=== PATIENT | female | born 1995 | race Caucasian/White ===

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

== ENCOUNTER 2018-01-02 02:09 | Emergency (ER) | payer BC ==
[2018-01-02 02:57] LABS: ABS Basophils 0 10^3/ul (0-0.2); ABS Eosinophils 0.2 10^3/ul (0-0.6); ABS Monocytes 0.4 10^3/ul (0-0.8); ABS Neutrophils 3.3 10^3/ul (1.5-7.7); ABS Nucleated RBC 0 10^3/ul; Eosinophil % 3.9 % (0-6); Hematocrit 43 % (35-47); Hemoglobin 15.1 g/dl (12.0-16.0); Lymphocyte % 20.8 % (25-47); Mean Corpuscular HGB Conc 35 g/dl (31-36); Mean Corpuscular Hemoglobin 31 pg (27-31); Mean Corpuscular Volume 90 fL (80-97); Mean Platelet Volume 8.3 um3 (7.4-10.4); Nucleated Red Blood Cells % 0; Platelet Count 225 10^3/ul (150-450); Red Blood Count 4.81 10^6/ul (4.0-5.4); Red Cell Distribution Width 13 % (10.5-15); White Blood Count 4.9 10^3/ul (3.5-10.8)
[2018-01-02 05:18] VITALS: BP 105/79
--- NOTE | 2018-01-02 06:17 | ED ---
Elena Smith Rebecca, scribed for Faraz Wood MD on 01/02/18 at 0234 . Psychiatric Complaint - HPI Summary HPI Summary: Pt is a 22 y/o F BIB police as a 941 who presents to ED due to concern over expressed SI. Pt reports she had been intoxicated when she texted her friend who hadn't been talking to her that she wanted to commit suicide. He contacted the police who brought the pt to the ED. Pt states that she was not serious about her stated SIs and that she had been upset that she and her friend weren' t talking. No suicide attempts. Kelly has drank a [place] ice tea and a vodka shot. - History Of Current Complaint Chief Complaint: EDMentalHealth Time Seen by Provider: 01/02/18 02:32 Hx Obtained From: Patient Onset/Duration: Resolved Aggravating Factor(s): Other - Friend had not maida talking to her Alleviating Factor(s): Nothing Associated Signs And Symptoms: Positive: Negative Has Suicidal: Reports: Thoughts - resolved Recent Stressor(s): Friend hasn't been talking to her - Allergies/Home Medications Allergies/Adverse Reactions: Allergies Allergy/AdvReac Type Severity Reaction Status Date / Time No Known Allergies Allergy Verified 01/02/18 02:15 PMH/Surg Hx/FS Hx/Imm Hx Endocrine/Hematology History: Denies: Hx Diabetes Cardiovascular History: Denies: Hx Hypertension Infectious Disease History: No Infectious Disease History: Denies: Traveled Outside the US in Last 30 Days - Family History Known Family History: Positive: Other - No FHx depression - Social History Alcohol Use: Weekly Alcohol Amount: Currently EtOH Substance Use Type: Reports: Other Smoking Status (MU): Never Smoked Tobacco Review of Systems Negative: Fever Positive: Other - SIs All Other Systems Reviewed And Are Negative: Yes Physical Exam - Summary Physical Exam Summary: Appearance: Well appearing, no pain distress Skin: warm, dry, reflects adequate perfusion Head/face: normal Eyes: EOMI, DAPHNIE ENT: normal Neck: supple, non-tender Respiratory: CTA, breath sounds present Cardiovascular: RRR, pulses symmetrical Musculoskeletal: normal, strength/ROM intact Neuro: normal, sensory motor intact, A&Ox3 Psych: Normal affect, slightly tearful Triage Information Reviewed: Yes Vital Signs On Initial Exam: Initial Vitals Temp Pulse Resp BP Pulse Ox 97.6 F 64 16 116/84 100 01/02/18 02:12 01/02/18 02:12 01/02/18 02:12 01/02/18 02:12 01/02/18 02:12 Vital Signs Reviewed: Yes Diagnostics - Vital Signs Vital Signs Temp Pulse Resp BP Pulse Ox 01/02/18 02:12 97.6 F 64 16 116/84 100 - Laboratory Lab Results: Lab Results 01/02/18 01/02/18 Range/Units 02:40 02:40 WBC 4.9 (3.5-10.8) 10^3/ul RBC 4.81 (4.0-5.4) 10^6/ul Hgb 15.1 (12.0-16.0) g/dl Hct 43 (35-47) % MCV 90 (80-97) fL MCH 31 (27-31) pg MCHC 35 (31-36) g/dl RDW 13 (10.5-15) % Plt Count 225 (150-450) 10^3/ul MPV 8.3 (7.4-10.4) um3 Neut % (Auto) 66.2 (38-83) % Lymph % (Auto) 20.8 L (25-47) % Story % (Auto) 8.3 H (0-7) % Eos % (Auto) 3.9 (0-6) % Baso % (Auto) 0.8 (0-2) % Absolute Neuts (auto) 3.3 (1.5-7.7) 10^3/ul Absolute Lymphs (auto) 1.0 (1.0-4.8) 10^3/ul Absolute Monos (auto) 0.4 (0-0.8) 10^3/ul Absolute Eos (auto) 0.2 (0-0.6) 10^3/ul Absolute Basos (auto) 0 (0-0.2) 10^3/ul Absolute Nucleated RBC 0 10^3/ul Nucleated RBC % 0 Sodium 140 (139-145) mmol/L Potassium 3.5 (3.5-5.0) mmol/L Chloride 103 (101-111) mmol/L Carbon Dioxide 28 (22-32) mmol/L Anion Gap 9 (2-11) mmol/L BUN 6 (6-24) mg/dL Creatinine 0.87 (0.51-0.95) mg/dL Est GFR ( Amer) 106.8 (>60) Est GFR (Non-Af Amer) 83.0 (>60) BUN/Creatinine Ratio 6.9 L (8-20) Glucose 107 H (70-100) mg/dL Calcium 9.9 (8.6-10.3) mg/dL Total Bilirubin 0.40 (0.2-1.0) mg/dL AST 24 (13-39) U/L ALT 14 (7-52) U/L Alkaline Phosphatase 65 (34-104) U/L Total Protein 8.3 (6.4-8.9) g/dL Albumin 5.2 (3.2-5.2) g/dL Globulin 3.1 (2-4) g/dL Albumin/Globulin Ratio 1.7 (1-3) TSH 2.22 (0.34-5.60) mcIU/mL Beta HCG, Quant < 0.60 mIU/mL Salicylates < 2.50 (<30) mg/dL Acetaminophen < 15 mcg/mL Serum Alcohol 45 H (<10) mg/dL Result Diagrams: 01/02/18 02:40 01/02/18 02:40 Lab Statement: Any lab studies that have been ordered have been reviewed, and results considered in the medical decision making process. Course/Dx - Course Course Of Treatment: Patient had been drinking tonight and was upset with her friend. She admitted suicidal statement to him. She states now that she has no intent on harming herself. She states it was the alcohol talking. She underwent full and complete crisis evaluation here and was deemed safe for discharge by the psychiatrist. Since she has failed with mental health at [place] she will be referred through family and children's. Assessment/Plan: Medically cleared for MHE at 0341. - Differential Dx/Clinical Impression Differential Diagnosis/HQI/PQRI: Positive: Alcohol Intoxication, Anxiety, Depression, Suicidal Ideation Provider Diagnosis: Substance induced mood disorder Discharge - Sign-Out/Discharge Documenting (check all that apply): Discharge/Admit/Transfer - Discharge - Discharge Plan Condition: Stable Disposition: HOME Referrals: [facility] - Darci REED [Primary Care Provider] - - Billing Disposition and Condition Condition: STABLE Disposition: HOME The documentation as recorded by the Elena del angel Rebecca accurately reflects the service I personally performed and the decisions made by me, Faraz Wood MD.
== END 2018-01-02 06:53 | disposition home or self-care (01) ==
LOC: ED 02:09
DX: F10.94 Alcohol use, unspecified with alcohol-induced mood disorder (principal)
CPT/HCPCS: 36415; 80053; 80320; 80329; 84443; 84702; 85025; 99285; G0480

== ENCOUNTER 2018-01-17 23:08 | Emergency (ER) | payer BC ==
[2018-01-18] MEDS ORDERED: NS 0.9% 1000 ML* 1,000 ML IV ONE ×2 (00:18→01:19)
[2018-01-18] MEDS ORDERED: Ondansetron ODT TAB* 4 MG PO ONE (00:19)
[2018-01-18 00:26] LABS: ABS Basophils 0 10^3/ul (0-0.2); ABS Eosinophils 0.1 10^3/ul (0-0.6); ABS Lymphocytes 0.3 10^3/ul (1.0-4.8); ABS Monocytes 0.5 10^3/ul (0-0.8); ABS Neutrophils 5.7 10^3/ul (1.5-7.7); ABS Nucleated RBC 0 10^3/ul; Eosinophil % 1.1 % (0-6); Hematocrit 42 % (35-47); Hemoglobin 14.8 g/dl (12.0-16.0); Lymphocyte % 4.8 % (25-47); Mean Corpuscular HGB Conc 36 g/dl (31-36); Mean Corpuscular Hemoglobin 32 pg (27-31); Mean Corpuscular Volume 89 fL (80-97); Mean Platelet Volume 7.6 um3 (7.4-10.4); Nucleated Red Blood Cells % 0; Platelet Count 171 10^3/ul (150-450); Red Blood Count 4.69 10^6/ul (4.0-5.4); Red Cell Distribution Width 13 % (10.5-15); White Blood Count 6.6 10^3/ul (3.5-10.8)
--- NOTE | 2018-01-18 00:30 | ED ---
GI/ HPI - HPI Summary HPI Summary: 22-year-old female presents with vomiting for the two days. She states she has been having umbilical abdominal pain. The pain has not moved anywhere. She denies any diarrhea. She has not a bowel movement in 5 days. She admits to pain with urination. She denies any frequency or urgency. She denies any flank pain. She denies any fevers. She's never had this symptoms before. She denies any previous belly surgeries. She states she feels very fatigued as she has been dehydrated. She seen by Darci and was given nausea medication but she vomited up. no one else is sick and did not eat anything different. - History of Current Complaint Chief Complaint: EDAbdPain Time Seen by Provider: 01/18/18 00:10 Stated Complaint: VOMITING/ABD PAIN Pain Intensity: 7 - Allergy/Home Medications Allergies/Adverse Reactions: Allergies Allergy/AdvReac Type Severity Reaction Status Date / Time No Known Allergies Allergy Verified 01/17/18 23:21 PMH/Surg Hx/FS Hx/Imm Hx Endocrine/Hematology History: Denies: Hx Diabetes Cardiovascular History: Denies: Hx Hypertension Psychiatric History: Denies: Hx Eating Disorder Infectious Disease History: No Infectious Disease History: Denies: Traveled Outside the US in Last 30 Days - Family History Known Family History: Positive: Unknown - LEVEL 5 CAVEAT - INTOXICATED, Other - No FHx depression - Social History Alcohol Use: Occasionally Alcohol Amount: Currently EtOH Substance Use Type: Reports: None Smoking Status (MU): Never Smoked Tobacco Review of Systems Negative: Fever Negative: Chest Pain Negative: Shortness Of Breath Positive: Abdominal Pain, Vomiting, Nausea Positive: dysuria All Other Systems Reviewed And Are Negative: Yes Physical Exam Triage Information Reviewed: Yes Vital Signs On Initial Exam: Initial Vitals Temp Pulse Resp BP Pulse Ox 99.0 F 75 16 103/74 97 01/17/18 23:15 01/17/18 23:15 01/17/18 23:15 01/17/18 23:15 01/17/18 23:15 Vital Signs Reviewed: Yes Appearance: Positive: Well-Appearing Skin: Positive: Warm, Dry Head/Face: Positive: Normal Head/Face Inspection Eyes: Positive: Normal, Conjunctiva Clear ENT: Positive: Pharynx normal Respiratory/Lung Sounds: Positive: Clear to Auscultation, Breath Sounds Present Cardiovascular: Positive: Normal, RRR Abdomen Description: Positive: Soft, Other: - mild diffuse adominal tenderness Bowel Sounds: Positive: Present Musculoskeletal: Positive: Normal Neurological: Positive: Normal Psychiatric: Positive: Normal Diagnostics - Vital Signs Vital Signs Temp Pulse Resp BP Pulse Ox 01/17/18 23:15 99.0 F 75 16 103/74 97 - Laboratory Lab Results: Lab Results 01/18/18 Range/Units 00:13 WBC 6.6 (3.5-10.8) 10^3/ul RBC 4.69 (4.0-5.4) 10^6/ul Hgb 14.8 (12.0-16.0) g/dl Hct 42 (35-47) % MCV 89 (80-97) fL MCH 32 H (27-31) pg MCHC 36 (31-36) g/dl RDW 13 (10.5-15) % Plt Count 171 (150-450) 10^3/ul MPV 7.6 (7.4-10.4) um3 Neut % (Auto) 86.0 H (38-83) % Lymph % (Auto) 4.8 L (25-47) % [place]er % (Auto) 7.8 H (0-7) % Eos % (Auto) 1.1 (0-6) % Baso % (Auto) 0.3 (0-2) % Absolute Neuts (auto) 5.7 (1.5-7.7) 10^3/ul Absolute Lymphs (auto) 0.3 L (1.0-4.8) 10^3/ul Absolute Monos (auto) 0.5 (0-0.8) 10^3/ul Absolute Eos (auto) 0.1 (0-0.6) 10^3/ul Absolute Basos (auto) 0 (0-0.2) 10^3/ul Absolute Nucleated RBC 0 10^3/ul Nucleated RBC % 0 Result Diagrams: 01/18/18 00:13 01/18/18 00:13 Lab Statement: Any lab studies that have been ordered have been reviewed, and results considered in the medical decision making process. - Radiology abd Xray Interpretation: No Acute Changes Radiology Interpretation Completed By: ED Physician Re-Evaluation - Re-Evaluation First Eval Re-Evaluation Time: 00:44 Comment: pain is in RUQ and LUQ, neg obturator, nontender RLQ and LLQ Second Eval Re-Evaluation Time: 02:02 Change: Improved Comment: pain resolved, feeling better GIGU Course/Dx - Course Course Of Treatment: 22-year-old female presents with vomiting for the two days. She states she has been having umbilical abdominal pain. The pain has not moved anywhere. She denies any diarrhea. She has not a bowel movement in 5 days. She admits to pain with urination. She denies any frequency or urgency. She denies any flank pain. She denies any fevers. She's never had this symptoms before. She denies any previous belly surgeries. She states she feels very fatigued as she has been dehydrated. She seen by Darci and was given nausea medication but she vomited up. no one else is sick and did not eat anything different. On exam has mild diffuse abdominal pain. on exam nontender RLQ and pain is only in LUQ and RUQ. Labs white blood cell count normal. abd xray normal. crp normal. gave fluids, gi cocktail and toradol and patient feeling better. patient has zofran. told if pain is persient in RLQ to marc. patient understand and agrees with plan. - Diagnoses Differential Diagnoses - Female: Appendicitis, Gastroenteritis (Viral), Urinary Tract Infection, Vomiting Provider Diagnoses: Abdominal pain, Vomiting Discharge - Sign-Out/Discharge Documenting (check all that apply): Discharge/Admit/Transfer - Discharge Plan Condition: Good Disposition: HOME Patient Education Materials: Acute Nausea and Vomiting (ED) Referrals: [facility] - MRDarci [Primary Care Provider] - Additional Instructions: Can take Zofran every 6 hours as needed for nausea Drink small amounts of fluid as tolerated When able to eat follow BRAT diet: Bananas, rice, applesauce, toast Take ibuprofen or Tylenol for pain as needed every 6 hours Follow up with primary within 5 days Return to ED if develop fever, severe abdominal pain, or any new or worsening symptoms - Billing Disposition and Condition Condition: GOOD Disposition: HOME
[2018-01-18 00:44] LABS: EGFR Non-African American 110.3 (>60)
[2018-01-18] MEDS ORDERED: Ketorolac INJ* 30 MG/ML 1 ML VIAL IV PUSH ONE (00:44)
[2018-01-18] MEDS ORDERED: Lidocaine 2% VISCOUS* 15 ML UDC PO ONE (00:45)
[2018-01-18] MEDS ORDERED: Al Hydrox/Mg Hydrox/Simet LIQ* 30 ML UDC PO ONE (00:45)
[2018-01-18 02:36] LABS: Urine Appearance Clear; Urine Blood Negative (Negative); Urine Color Amber; Urine Ketones Trace (Negative); Urine Protein 1+(30 mg/dL) (Negative); Urine Specific Gravity 1.025 (1.010-1.030); Urine Urobilinogen Positive (Negative)
[2018-01-18 03:02] VITALS: BP 109/63
--- NOTE | 2018-01-18 10:35 | RAD ---
Indication: Abdominal pain. Flat and upright views of the abdomen demonstrates no free air. Air-fluid levels are noted in the stomach. No dilated loops of bowel are noted. The colon is filled with stool. IMPRESSION: NO FREE AIR OR OBSTRUCTION IS NOTED.
== END 2018-01-18 03:02 | disposition home or self-care (01) ==
LOC: ED 23:08
DX: R10.84 Generalized abdominal pain (principal); R11.2 Nausea with vomiting, unspecified
CPT/HCPCS: 36415; 74019; 80053; 81003; 81015; 83690; 84702; 85025; 86141; 87086; 96361; 96374; 99283; A9270-GY; J1885

== ENCOUNTER 2019-07-29 11:09 | Emergency (ER) | payer BC ==
--- NOTE | 2019-07-29 13:13 | ED ---
Back Pain - HPI Summary HPI Summary: 23-year-old female presents with back pain for the past couple days. She states the pain is just located on the left side of her back. It does not cross midline. She denies any pains into legs. Denies tingling. No weakness. no loss of bowel or bladder. No saddle anesthesias. has pain with ambulation in the back but is able to do so without difficulty. She states that she's been having muscle spasms. No injury. Has been taking flexeril and ibuprofen. she denies any chest pain or SOB. no urinary symptoms - History of Current Complaint Chief Complaint: EDBackInjuryPain Stated Complaint: BACK PAIN Time Seen by Provider: 07/29/19 12:52 Pain Intensity: 9 - Allergies/Home Medications Allergies/Adverse Reactions: Allergies Allergy/AdvReac Type Severity Reaction Status Date / Time No Known Allergies Allergy Verified 07/29/19 11:25 Home Medications: Home Medications Cyclobenzaprine TAB* [Flexeril 10 MG TAB*] 10 mg PO TID PRN 07/29/19 [History Confirmed 07/29/19] PMH/Surg Hx/FS Hx/Imm Hx Endocrine/Hematology History: Denies: Hx Diabetes Cardiovascular History: Denies: Hx Hypertension Psychiatric History: Denies: Hx Eating Disorder Infectious Disease History: No Infectious Disease History: Denies: Traveled Outside the [place] in Last 30 Days - Family History Known Family History: Positive: Unknown - LEVEL 5 CAVEAT - INTOXICATED, Other - No FHx depression - Social History Alcohol Use: Occasionally Alcohol Amount: Currently EtOH Substance Use Type: Reports: None Smoking Status (MU): Never Smoked Tobacco Review of Systems Negative: Fever Negative: Chest Pain Negative: Shortness Of Breath Positive: Myalgia - back pain All Other Systems Reviewed And Are Negative: Yes Physical Exam Triage Information Reviewed: Yes Vital Signs On Initial Exam: Initial Vitals Temp Pulse Resp BP Pulse Ox 97.6 F 58 16 112/83 100 07/29/19 11:21 07/29/19 11:21 07/29/19 11:21 07/29/19 11:21 07/29/19 11:21 Vital Signs Reviewed: Yes Appearance: Positive: Well-Appearing Skin: Positive: Warm, Dry Head/Face: Positive: Normal Head/Face Inspection Eyes: Positive: Normal, Conjunctiva Clear ENT: Positive: Pharynx normal Respiratory/Lung Sounds: Positive: Clear to Auscultation, Breath Sounds Present Cardiovascular: Positive: Normal, RRR Musculoskeletal: Positive: Strength/ROM Intact - back pain, Other - tenderness left side of back, good pulses, sensation grossly intact, Neurological: Positive: Normal, Reflexes Intact - patella Psychiatric: Positive: Normal Procedures - Sedation Patient Received Moderate/Deep Sedation with Procedure: No Diagnostics - Vital Signs Vital Signs Temp Pulse Resp BP Pulse Ox 07/29/19 11:21 97.6 F 58 16 112/83 100 - Laboratory Lab Statement: Any lab studies that have been ordered have been reviewed, and results considered in the medical decision making process. - Radiology back Radiology Interpretation Completed By: Radiologist Summary of Radiographic Findings: IMPRESSION: No fracture of the lumbar spine is noted. Re-Evaluation - Re-Evaluation First Eval Re-Evaluation Time: 14:30 Change: Improved Comment: feeling better Back Pain Course/Dx - Course Course Of Treatment: 23-year-old female presents with back pain for the past couple days. She states the pain is just located on the left side of her back. It does not cross midline. She denies any pains into legs. Denies tingling. No weakness. no loss of bowel or bladder. No saddle anesthesias. has pain with ambulation in the back but is able to do so without difficulty. She states that she's been having muscle spasms. No injury. Has been taking flexeril and ibuprofen. On exam tenderness or left side of her back. neurovascular Intact. xray shows no fracture. gave valium, toradal and lidoderm with improvement. will discharge with robaxin and medrol. patient understand and agrees with plan. - Diagnoses Differential Diagnosis/HQI/PQRI: Positive: Fracture, Strain, Sprain Provider Diagnoses: Back pain Discharge ED - Sign-Out/Discharge Documenting (check all that apply): Patient Departure - Discharge Plan Condition: Good Disposition: HOME Prescriptions: Methocarbamol TAB* [Robaxin 500 MG TAB*] 750 mg PO TID PRN #15 tab PRN Reason: Pain - Moderate methylPREDNISolone [Medrol Dosepak 4 MG*] 4 mg PO .SEE VANESSA INSTRUCTION #1 packet Patient Education Materials: Back Pain (ED) Referrals: [facility] - Darci REED [Primary Care Provider] - Additional Instructions: Follow directions on package for Medrol pack Take robaxin three times a day, stop flexeril Use ibuprofen or Tylenol for pain every 6 hours ice/heat area, move as much as possible Follow up with Darci within 5 days Return to ED if develop any new or worsening symptoms - Billing Disposition and Condition Condition: GOOD Disposition: Home
[2019-07-29] MEDS: Lidocaine PATCH 5%* 1 PATCH TRANSDERM ONE (13:35)
[2019-07-29] MEDS: Diazepam TAB(*) 5 MG PO ONE (13:35)
[2019-07-29] MEDS: Ketorolac INJ* 30 MG/ML 1 ML VIAL IM ONE (13:35)
[2019-07-29 15:31] VITALS: BP 93/58
[2019-07-29] MEDS ORDERED: Lidocaine Patch REMOVE* 1 NOTE MISC SCH (21:00)
== END 2019-07-29 14:13 | disposition home or self-care (01) ==
LOC: ED 11:09
DX: M54.9 Dorsalgia, unspecified (principal)
CPT/HCPCS: 72110; 96372; 99283; A9270-GY; J1885